=== PATIENT | male | born 1975 | race Caucasian/White ===

== ENCOUNTER 2020-01-20 21:34 | Emergency (ER) | payer MEDICAID ==
[~2020-01-20] VITALS: Ht 182.9 cm; Wt 97.7 kg
[~2020-01-20 21:34] MED LIST: HYDR28OI2 TOP
[2020-01-20 21:39] VITALS: BP 126/82
[2020-01-20] MEDS ORDERED: BACDS PO (22:03)
[2020-01-20] MEDS ORDERED: CEPH250T PO (22:03)
== END 2020-01-20 22:10 | disposition home or self-care (01) ==
LOC: ER 21:35
DX: S30.860A Insect bite (nonvenomous) of lower back and pelvis, initial encounter (principal); S70.362A Insect bite (nonvenomous), left thigh, initial encounter; L08.9 Local infection of the skin and subcutaneous tissue, unspecified; Z72.89 Other problems related to lifestyle; Z79.899 Other long term (current) drug therapy; W57.XXXA Bitten or stung by nonvenomous insect and other nonvenomous arthropods, initial encounter; Y93.89 Activity, other specified; Y92.89 Other specified places as the place of occurrence of the external cause; Y99.8 Other external cause status
CPT/HCPCS: 99283

== ENCOUNTER 2020-02-17 11:43 | Emergency (ER) | payer MEDICAID ==
[~2020-02-17] VITALS: Ht 182.9 cm; Wt 97.7 kg
[2020-02-17 11:52] VITALS: BP 136/81
[2020-02-17] MEDS ORDERED: BACDS PO (14:16)
[2020-02-17] MEDS ORDERED: CEPH250T PO (14:16)
== END 2020-02-17 14:34 | disposition home or self-care (01) ==
LOC: ER 11:44
DX: T63.391A Toxic effect of venom of other spider, accidental (unintentional), initial encounter (principal); Z72.89 Other problems related to lifestyle; Z79.2 Long term (current) use of antibiotics; Z79.899 Other long term (current) drug therapy; Y92.89 Other specified places as the place of occurrence of the external cause
CPT/HCPCS: 99283